=== PATIENT | male | born 1970 | race African-American/Black ===

== ENCOUNTER 2022-03-28 20:13 | Outpatient (CLI) | payer MEDICAID | END 2022-03-28 20:14 | disposition critical access hospital (66) | LOC: EMS 20:13 | DX: R40.20 Unspecified coma (principal); R06.89 Other abnormalities of breathing; E11.65 Type 2 diabetes mellitus with hyperglycemia | CPT/HCPCS: A0425; A0427; A0999 ==

== ENCOUNTER 2022-03-28 20:25 | Emergency (ER) | payer MEDICAID ==
[2022-03-28] MEDS ORDERED: NOREPINEPHRINE/D5W 8 MG/250 ML BAG IV ONE (20:56)
[2022-03-28] MEDS ORDERED: SODIUM CHLORIDE 0.9% 1,000 ML IV STA ×5 (21:04→23:23)
[2022-03-28] MEDS ORDERED: INSULIN REGULAR HUMAN 100 UNIT/1 ML 10 ML MDV ONE (21:05)
[2022-03-28] MEDS ORDERED: NOREPINEPHRINE/D5W 8 MG/250 ML BAG IV STA (21:05)
[2022-03-28] MEDS ORDERED: INSULIN REGULAR HUMAN 100 UNIT in SODIUM CHLORIDE 0.9% 100ML 99 ML IV STA (21:06)
[2022-03-28 21:09] LABS: VBG PCO2 38.8 mmHg (41-51); VBG PH 6.799 (7.31-7.41)
[2022-03-28 21:10] LABS: VBG BASE EXCESS -28.5 mmol/L (-2 - +2); VBG HCO3 5.9 mmol/L (23-28); VBG PO2 127.2 mmHg (25-47); VBG TOTAL CO2 7.1 mmol/L (24-29)
[2022-03-28 21:13] LABS: BASOPHILS % (AUTO) 0.4 %; EOSINOPHILS % (AUTO) 0.1 %; HCT - HEMATOCRIT 40.8 % (42.0-52.0); KETONES, SERUM (ACETEST) MODERATE (NEGATIVE); LYMPHOCYTES % (AUTO) 17.4 %; MEAN CORPUSCULAR HEMOGLOBIN 26.7 pg (27.0-31.0); MEAN CORPUSCULAR HGB CONC 29.4 g/dL (32.0-36.0); MEAN CORPUSCULAR VOLUME 90.9 fL (80.0-94.0); MEAN PLATELET VOLUME 13.2 fL (7.4-11.4); MONOCYTES % (AUTO) 4.5 %; NEUTROPHILS % (AUTO) 72.6 %; PLT - PLATELET COUNT 302 10^3/uL (130-450); RED BLOOD COUNT 4.49 10^6/uL (4.70-6.10); RED CELL DISTRIBUTION WIDTH 16.1 % (12.0-15.0); WHITE BLOOD COUNT 10.2 x10^3/uL (4.8-10.8)
[2022-03-28 21:16] LABS: ABNORMAL LYMPHS % (MANUAL) 0 %
--- NOTE | 2022-03-28 21:24 | ED Physician Documentation ---
History of Present Illness - Stated complaint Stated Complaint: CARDIAC ARREST, CPR - Chief complaint Chief Complaint: Critical Care - History obtained from History obtained from: EMS - Additonal information Additional information: Patient is a 52-year-old male brought in by EMS. They were called to his house where he lives with his brother and his brother's . They had not seen him for about 2 days, when they checked on him he was unresponsive in bed. 911 was called. EMS states that when they arrived they found the patient with agonal respirations and unconscious. His blood sugar read "high". He does have a history of insulin-dependent diabetes. He is seen went into cardiac arrest and CPR was begun. He received several rounds of epinephrine and did have spontaneous circulation for approximately 30 seconds at a time 2-3 times during their CPR efforts. He was coded for about 30 minutes. They found him in his room with a fan blowing cold air on him as well. He arrives to the emergency department in cardiac arrest with CPR ongoing. Review of Systems Unable to obtain: Intubated PD PAST MEDICAL HISTORY - Past Medical History Past Medical History: Yes Endocrine/Autoimmune: Other (Insulin-dependent diabetes) - Allergies Allergies/Adverse Reactions: Allergies Allergy/AdvReac Type Severity Reaction Status Date / Time Unable to Assess Allergy Verified 03/28/22 20:35 - Living Situation Living Arrangement: reports: At home - Social History Smoking Status: Unknown if ever smoked ETOH Use: Other (Unknown) Substance Use and Type: Other (Unknown) - Family History Family history: reports: Other (Unknown) PD ED PE NORMAL - Vitals Vital signs reviewed: Yes - General General: Other (Intubated, unresponsive) - HEENT HEENT: Atraumatic, Other (Dry lips, intubated, Pupils are sluggish and minimally reactive) - Neck Neck: Other (supple, no signs of trauma) - Cardiac Cardiac: Other (absent heart sounds) - Respiratory Respiratory: Other (rhonchi B) - Abdomen Abdomen: Soft, Non distended - Derm Derm: Other (cold extremities) - Extremities Extremities: No deformity - Neuro Neuro: Other (unresponsive) Results - Vitals Vitals: Vital Signs - 24 hr 03/28/22 03/28/22 03/28/22 20:24 20:29 20:47 Temperature 27.7 C L Heart Rate 110 H 97 102 H Respiratory 26 H 22 Rate Blood Pressure 98/73 95/62 74/57 L O2 Saturation 92 03/28/22 03/28/22 03/28/22 21:11 21:15 21:31 Temperature 28.0 C L 28.0 C L Heart Rate 94 100 Respiratory 21 Rate Blood Pressure 93/73 O2 Saturation 03/28/22 03/28/22 03/28/22 22:00 22:09 22:14 Temperature 28.1 C L 28.1 C L Heart Rate 51 L 51 L Respiratory 23 22 Rate Blood Pressure 80/57 L 85/66 L O2 Saturation 100 100 100 03/28/22 03/28/22 03/28/22 22:18 22:23 22:30 Temperature 28.2 C L 28.2 C L 28.3 C L Heart Rate 54 L 70 53 L Respiratory 22 22 22 Rate Blood Pressure 90/60 75/51 L 89/57 L O2 Saturation 100 100 100 03/28/22 03/28/22 22:37 22:39 Temperature 28.4 C L 28.5 C L Heart Rate 53 L 54 L Respiratory 23 22 Rate Blood Pressure 79/54 L 92/66 O2 Saturation 100 100 Oxygen O2 Source Mechanical ventilator - Labs Labs: Laboratory Tests 03/28/22 03/28/22 03/28/22 21:03 21:03 21:03 WBC 10.2 RBC 4.49 L Hgb 12.0 L Hct 40.8 L MCV 90.9 MCH 26.7 L MCHC 29.4 L RDW 16.1 H Plt Count 302 MPV 13.2 H Neut # (Auto) Not Reportable Lymph # (Auto) Not Reportable Tucker # (Auto) Not Reportable Eos # (Auto) Not Reportable Baso # (Auto) Not Reportable Absolute Nucleated RBC Not Reportable Total Counted 100 Band Neuts % (Manual) 3 Abnorm Lymph % (Manual) 0 Metamyelocytes % 3 H Nucleated RBC % Not Reportable Neutrophils # (Manual) 7.7 H Lymphocytes # (Manual) 1.7 Monocytes # (Manual) 0.5 Eosinophils # (Manual) 0.0 Basophils # (Manual) 0.0 Differential Comment MANUAL DIFFERENTIAL WBC Morphology NORMAL APPEARANCE Platelet Estimate NORMAL (130-450,000) Platelet Morphology NORMAL APPEARANCE RBC Morph Micro Appear NORMAL APPEARANCE VBG pH 6.799 L VBG pCO2 38.8 L VBG pO2 127.2 H VBG HCO3 5.9 L VBG Total CO2 7.1 L VBG O2 Saturation 96.0 H VBG Base Excess -28.5 L Sodium 129 L Potassium 4.9 Chloride 79 L* Carbon Dioxide 8 L* Anion Gap 42.0 H BUN 126 H* Creatinine 6.1 H Estimated GFR (MDRD) 12 L Glucose 1196 H* Calcium 8.7 Phosphorus > 12.0 H Magnesium 4.5 H Total Bilirubin 1.5 H AST 46 H ALT 21 Alkaline Phosphatase 123 H Total Protein 6.6 L Albumin 2.7 L Globulin 3.9 Albumin/Globulin Ratio 0.7 L Lipase 876 H Urine Color Urine Clarity Urine pH Ur Specific [place] Urine Protein Urine Glucose (UA) Urine Ketones Urine Occult Blood Urine Nitrite Urine Bilirubin Urine Urobilinogen Ur Leukocyte Esterase Urine RBC Urine WBC Ur Squamous Epith Cells Urine Bacteria Ur Microscopic Review Urine Culture Comments Nasal Adenovirus (PCR) Nasal B. parapertussis DNA (PCR) Nasal Coronavir 229E PCR Nasal Coronavir HKU1 PCR Nasal Coronavir NL63 PCR Nasal Coronavir OC43 PCR Nasal Enterovir/Rhinovir PCR Nasal Influenza B PCR Nasal Influenza A PCR Nasal Parainfluen 1 PCR Nasal Parainfluen 2 PCR Nasal Parainfluen 3 PCR Nasal Parainfluen 4 PCR Nasal RSV (PCR) Nasal B.pertussis DNA PCR Nasal C.pneumoniae (PCR) Hector Human Metapneumo PCR Nasal M.pneumoniae (PCR) Nasal SARS-CoV-2 (PCR) Salicylates < 6.0 Urine Opiates Screen Ur Oxycodone Screen Urine Methadone Screen Ur Propoxyphene Screen Acetaminophen < 10 L Ur Barbiturates Screen Ur Tricyclics Screen Ur Phencyclidine Scrn Ur Amphetamine Screen U Methamphetamines Scrn U Benzodiazepines Scrn Urine Cocaine Screen U Cannabinoids Screen Ethyl Alcohol < 5.0 Serum Ketones MODERATE H 03/28/22 03/28/22 21:18 21:24 WBC RBC Hgb Hct MCV MCH MCHC RDW Plt Count MPV Neut # (Auto) Lymph # (Auto) Tucker # (Auto) Eos # (Auto) Baso # (Auto) Absolute Nucleated RBC Total Counted Band Neuts % (Manual) Abnorm Lymph % (Manual) Metamyelocytes % Nucleated RBC % Neutrophils # (Manual) Lymphocytes # (Manual) Monocytes # (Manual) Eosinophils # (Manual) Basophils # (Manual) Differential Comment WBC Morphology Platelet Estimate Platelet Morphology RBC Morph Micro Appear VBG pH VBG pCO2 VBG pO2 VBG HCO3 VBG Total CO2 VBG O2 Saturation VBG Base Excess Sodium Potassium Chloride Carbon Dioxide Anion Gap BUN Creatinine Estimated GFR (MDRD) Glucose Calcium Phosphorus Magnesium Total Bilirubin AST ALT Alkaline Phosphatase Total Protein Albumin Globulin Albumin/Globulin Ratio Lipase Urine Color YELLOW Urine Clarity CLEAR Urine pH 5.5 Ur Specific [place] 1.020 Urine Protein NEGATIVE Urine Glucose (UA) >=1000 H Urine Ketones 15 H Urine Occult Blood SMALL H Urine Nitrite NEGATIVE Urine Bilirubin NEGATIVE Urine Urobilinogen 0.2 (NORMAL) Ur Leukocyte Esterase NEGATIVE Urine RBC 11-25 H Urine WBC 0-3 Ur Squamous Epith Cells NONE SEEN Urine Bacteria Rare Ur Microscopic Review INDICATED Urine Culture Comments NOT INDICATED Nasal Adenovirus (PCR) NOT DETECTED Nasal B. parapertussis DNA (PCR) NOT DETECTED Nasal Coronavir 229E PCR NOT DETECTED Nasal Coronavir HKU1 PCR NOT DETECTED Nasal Coronavir NL63 PCR NOT DETECTED Nasal Coronavir OC43 PCR NOT DETECTED Nasal Enterovir/Rhinovir PCR NOT DETECTED Nasal Influenza B PCR NOT DETECTED Nasal Influenza A PCR NOT DETECTED Nasal Parainfluen 1 PCR NOT DETECTED Nasal Parainfluen 2 PCR NOT DETECTED Nasal Parainfluen 3 PCR NOT DETECTED Nasal Parainfluen 4 PCR NOT DETECTED Nasal RSV (PCR) NOT DETECTED Nasal B.pertussis DNA PCR NOT DETECTED Nasal C.pneumoniae (PCR) NOT DETECTED Hector Human Metapneumo PCR NOT DETECTED Nasal M.pneumoniae (PCR) NOT DETECTED Nasal SARS-CoV-2 (PCR) DETECTED A Salicylates Urine Opiates Screen NEGATIVE Ur Oxycodone Screen NEGATIVE Urine Methadone Screen NEGATIVE Ur Propoxyphene Screen NEGATIVE Acetaminophen Ur Barbiturates Screen NEGATIVE Ur Tricyclics Screen NEGATIVE Ur Phencyclidine Scrn NEGATIVE Ur Amphetamine Screen NEGATIVE U Methamphetamines Scrn NEGATIVE U Benzodiazepines Scrn NEGATIVE Urine Cocaine Screen NEGATIVE U Cannabinoids Screen NEGATIVE Ethyl Alcohol Serum Ketones - Rads (name of study) cxr Radiology: EMP read indepedently (ET tube at tami) Procedures - Central Line Central Line Preparation: Unable to obtain consent, Ultrasound used Central line location: Right Femoral Central line type: Triple lumen Central line aftercare: Chlorhexidine disc placed, Secured, Placement confirmed, No complications PD MEDICAL DECISION MAKING - ED course Complexity details: reviewed results, re-evaluated patient, considered differential, d/w family, d/w corporate learning consultant ED course: Patient is a 52-year-old male who was brought in by EMS in cardiac arrest. CPR was continued until they arrived in the emergency department, the ultrasound was placed over the patient's chest and the patient has contraction of the heart. He had a femoral pulse as well. CPR was stopped. Bicarb given through his intraosseous line. Peripheral IVs were unable to be established. Patient is very cold and very dehydrated. Blood sugar read high. A right femoral line was emergently placed, this will need to be changed once the patient is stable. The patient was given warm IV fluids, started on a Levophed drip. A Shine catheter was placed with temperature reading, his internal temperature is around 27 C. A warming device was placed on the patient as well. Insulin drip was started. He appears to be in DKA. A sodium bicarbonate drip was started as well. Discussed the case with our hospitalist here who feels that the patient is too sick to stay in this hospital. We have contacted [facility] in [facility] and [facility] in [facility], [facility], [facility], [facility], [facility] and no ICU beds are currently available. [facility] contacted and they will help us look for an ICU bed for this patient. The patient's brother Kyle Morataya called and I spoke with him and his . His phone number is [phone]. They state that the patient is a insulin- dependent diabetic. He also has a history of H. pylori. He is currently on insulin, omeprazole, tetracycline and metronidazole. - Critical Care Time(min): 70 Time Includes: Direct patient care, Document care, Coordinate care, Family consult for tx dec, See progress note Data interpretation: See progress note Procedures included in critical care time: See progress note Procedures excluded from critical care time: Central IV, See progress note Departure - Departure Disposition: 02 Transfer Acute Care Hosp Clinical Impression: Cardiac arrest, Hyperglycemia, Metabolic acidosis, COVID, Hyperphosphatemia, Dehydration, Hypochloremia Hypothermia Qualifiers: Encounter type: initial encounter Qualified Code(s): T68.XXXA - Hypothermia, initial encounter DKA (diabetic ketoacidosis) Qualifiers: Diabetes mellitus type: type 2 Diabetes mellitus complication detail: with coma Qualified Code(s): E11.11 - Type 2 diabetes mellitus with ketoacidosis with coma Acute renal failure Qualifiers: Acute renal failure type: unspecified Qualified Code(s): N17.9 - Acute kidney failure, unspecified Pancreatitis Qualifiers: Chronicity: acute Pancreatitis type: unspecified pancreatitis type Acute pancreatitis complication: unspecified Qualified Code(s): K85.90 - Acute pancreatitis without necrosis or infection, unspecified Condition: Critical
[2022-03-28 21:32] LABS: MUDS CUTOFF CONCENTRATIONS CUTOFF CONC BELOW:
[2022-03-28 21:39] LABS: BILIRUBIN,URINE NEGATIVE (NEGATIVE); GLUCOSE, URINE (UA) >=1000 mg/dL (NEGATIVE); KETONES,URINE (UA) 15 mg/dL (NEGATIVE); LEUKOCYTE ESTERASE, URINE NEGATIVE (NEGATIVE); NITRITE,URINE NEGATIVE (NEGATIVE); OCCULT BLOOD,URINE SMALL (NEGATIVE); PH,URINE 5.5 PH (5.0-7.5); PROTEIN,URINE NEGATIVE (NEGATIVE); UROBILINOGEN,URINE 0.2 (NORMAL) E.U./dL (NORMAL)
[2022-03-28 21:40] LABS: ALBUMIN 2.7 g/dL (3.2-5.5); ALKALINE PHOSPHATASE 123 IU/L (42-121); ALT ALANINE AMINOTRANSFERASE 21 IU/L (10-60); AST ASPARTATE AMINOTRANSFERASE 46 IU/L (10-42); CALCIUM 8.7 mg/dL (8.5-10.3); LIPASE 876 U/L (22-51); POTASSIUM 4.9 mmol/L (3.5-5.0)
[2022-03-28 21:41] LABS: ACETAMINOPHEN < 10 ug/mL (10-30); ALBUMIN/GLOBULIN RATIO 0.7 (1.0-2.2); BILIRUBIN,TOTAL 1.5 mg/dL (0.2-1.0); CREATININE 6.1 mg/dL (0.6-1.2); ETOH - ETHANOL < 5.0 mg/dL; GFR - MDRD 12 (>89); MAGNESIUM 4.5 mg/dL (1.7-2.8); SALICYLATE < 6.0 mg/dL; TOTAL PROTEIN 6.6 g/dL (6.7-8.2)
[2022-03-28 21:41] LABS: CLARITY,URINE CLEAR (CLEAR)
[2022-03-28 21:44] LABS: SODIUM 129 mmol/L (135-145)
[2022-03-28 21:46] LABS: BAND NEUTROPHILS % (MANUAL) 3 %; LYMPHOCYTES # (MANUAL) 1.7 10^3/uL (1.5-3.5); LYMPHOCYTES % (MANUAL) 17 %; METAMYELOCYTES % (MANUAL) 3 %; MONOCYTES # (MANUAL) 0.5 10^3/uL (0.0-1.0); NEUTROPHILS # (MANUAL) 7.7 10^3/uL (1.5-6.6)
[2022-03-28 21:47] LABS: BUN - BLOOD UREA NITROGEN 126 mg/dL (6-20); CARBON DIOXIDE - CO2 8 mmol/L (21-32); CHLORIDE 79 mmol/L (101-111); GLUCOSE 1196 mg/dL (70-100); PHOSPHORUS > 12.0 mg/dL (2.5-4.6)
[2022-03-28 21:48] LABS: DIFFERENTIAL COMMENT MANUAL DIFFERENTIAL; PLATELET ESTIMATE, MANUAL NORMAL (130-450,000) (NORMAL); PLATELET MORPHOLOGY NORMAL APPEARANCE (NORMAL); RBC MORPHOLOGY (MULTIPLE) NORMAL APPEARANCE (NORMAL); WBC MORPHOLOGY (MULTIPLE) NORMAL APPEARANCE (NORMAL)
[2022-03-28 21:50] LABS: AMPHETAMINE SCREEN,URINE NEGATIVE (NEGATIVE); BARBITURATE SCREEN,UR NEGATIVE (NEGATIVE); BENZODIAZEPINES SCREEN, URINE NEGATIVE (NEGATIVE); COCAINE SCREEN URINE NEGATIVE (NEGATIVE); METHADONE SCREEN, URINE NEGATIVE (NEGATIVE); METHAMPHETAMINES SCREEN, URINE NEGATIVE (NEGATIVE); OPIATE SCREEN, URINE NEGATIVE (NEGATIVE); OXYCODONE SCREEN, URINE NEGATIVE (NEGATIVE); PROPOXYPHENE SCREEN, URINE NEGATIVE (NEGATIVE); THC CANNABINOID SCREEN, URINE NEGATIVE (NEGATIVE); TRICYCLIC ANTIDEPRESSANT,URINE NEGATIVE (NEGATIVE)
[2022-03-28] MEDS ORDERED: SODIUM BICARBONATE ABBOJECT 50 MEQ/50 ML SYRINGE IVP STA (21:50)
[2022-03-28 21:57] LABS: BACTERIA,URINE Rare /HPF (None Seen); SQUAMOUS EPITHELIAL CELL,UR NONE SEEN (<= Few); WBC,URINE 0-3 /HPF (0-3)
[2022-03-28] MEDS ORDERED: EPINEPHrine ABBOJECT 1 MG/10 ML SYRINGE IVP ONE (22:30)
[2022-03-28] MEDS ORDERED: SODIUM BICARBONATE 8.4% 50 MEQ/50 ML VIAL IV ONE (22:30)
[2022-03-28] MEDS ORDERED: SODIUM BICARBONATE 150 MEQ in DEXTROSE 5% 1,000 ML IV STA (22:35)
[2022-03-28 22:40] LABS: CORONAVIRUS 229E-RESP PCR NOT DETECTED; CORONAVIRUS HKU1-RESP PCR NOT DETECTED; CORONAVIRUS NL63-RESP PCR NOT DETECTED; CORONAVIRUS OC43-RESP PCR NOT DETECTED
[2022-03-28 22:41] LABS: B. PARAPERTUSSIS- RESP PCR PAN NOT DETECTED; B. PERTUSSIS- RESP PCR PANEL NOT DETECTED; C. PNEUMONIAE- RESP PCR PANEL NOT DETECTED; HUMAN METAPNEUMOVIRUS NOT DETECTED; INFLUENZA A- RESP PCR PANEL NOT DETECTED; INFLUENZA B - RESP PCR PANEL NOT DETECTED; M. PNEUMONIAE- RESP PCR PANEL NOT DETECTED; PARAINFLUENZA VIRUS 1 NOT DETECTED; PARAINFLUENZA VIRUS 2 NOT DETECTED; PARAINFLUENZA VIRUS 3 NOT DETECTED; PARAINFLUENZA VIRUS 4 NOT DETECTED; RHINOVIRUS/ENTEROVIRUS NOT DETECTED; RSV- RESP PCR PANEL NOT DETECTED; SARS-CoV-2 -RESP PCR PANEL DETECTED
--- NOTE | 2022-03-28 22:52 | XRAY Report ---
PROCEDURE: Chest 1 View X-Ray INDICATIONS: intubation TECHNIQUE: One view of the chest was acquired. COMPARISON: None. FINDINGS: Surgical changes and devices: There is an endotracheal tube with the tip approximately 1.2 cm from t he tami. A nasogastric tube extends into the stomach, with the tip in the region of the gastric bod y. Lungs and pleura: The lungs are clear. No pleural effusions or pneumothorax. Mediastinum: Mediastinal contours appear normal. Heart size is normal. Bones and chest wall: No displaced fracture identified. No suspicious bony lesions. Overlying soft tissues appear unremarkable. IMPRESSION: 1. Endotracheal tube extends to approximately 1.2 cm from the tami. Recommend withdrawal by approxi mately 3 cm. Reviewed by: Ryan Crawford MD on 03/28/2022 10:51 PM PDT Approved by: Ryan Crawford MD on 03/28/2022 10:51 PM PDT Station ID: [id number]
[2022-03-28] MEDS ORDERED: SODIUM BICARBONATE 8.4% 50 MEQ/50 ML VIAL ONE (23:01)
[2022-03-28 23:09] LABS: ABG BASE EXCESS -27.7 mmol/L (-2.0-3.0); ABG MODE OF VENTILATION ASSIST/CONTROL; ABG OXYGEN SATURATION 100 % (94-98); ABG RESPIRATORY RATE 22 b/min; ALLEN TEST POSITIVE
[2022-03-28 23:11] LABS: ABG PCO2 21 mmHg (34-45); ABG PO2 492 mmHg (80-100); ABG TCO2 4.6 MMOL/L (21.0-29.0)
[2022-03-28] MEDS ORDERED: VASOPRESSIN 20 UNIT in DEXTROSE 5% 99 ML IV STA (23:21)
--- NOTE | 2022-03-28 23:42 | ED Physician Documentation ---
ED Addendum - Addendum Addendum: Patient received in signout from Dr. Lazo. Patient is status postcardiac arrest and found to be in DKA, hypothermic and COVID-positive. CT brain, EKG is pending. Patient is awaiting transfer to facility with higher level of care. 03/28/22 23:20 D/W Dr. Castillo at [place]. She recommends increasing his respiratory rate to 22 on the ventilator and given an additional liter of fluids. She also recommends adding vasopressin at 0.4 units. She also requests a lactic, troponin and set of blood cultures.I have updated the patient's nurse as well as respiratory therapist with these updated orders. 03/29/22 00:05 EKG Time 2353; Rate 62; NSR; No STEMI; QTC 518; Troponin Is sligh tly elevated at 37, lactic is 6.5 Patient has been accepted to [facility] under the care of Dr. Castillo. He will be transported by air.I attempted to call the phone number for his next of kin but there was no answer and no ability to leave a voice message. Departure - Departure Disposition: 02 Transfer Acute Care Hosp Clinical Impression: Cardiac arrest, Hyperglycemia, Metabolic acidosis, COVID, Hyperphosphatemia, Dehydration, Hypochloremia Hypothermia Qualifiers: Encounter type: initial encounter Qualified Code(s): T68.XXXA - Hypothermia, initial encounter DKA (diabetic ketoacidosis) Qualifiers: Diabetes mellitus type: type 2 Diabetes mellitus complication detail: with coma Qualified Code(s): E11.11 - Type 2 diabetes mellitus with ketoacidosis with coma Acute renal failure Qualifiers: Acute renal failure type: unspecified Qualified Code(s): N17.9 - Acute kidney failure, unspecified Pancreatitis Qualifiers: Chronicity: acute Pancreatitis type: unspecified pancreatitis type Acute pancreatitis complication: unspecified Qualified Code(s): K85.90 - Acute pancreatitis without necrosis or infection, unspecified Condition: Critical Discharge Date/Time: 03/29/22 01:47
--- NOTE | 2022-03-28 23:53 | CT Report ---
PROCEDURE: HEAD WO INDICATIONS: altered, mental status TECHNIQUE: Noncontrast 4.5 mm thick angled axial sections acquired from the foramen magnum to the vertex. For r adiation dose reduction, the following was used: automated exposure control, adjustment of mA and/or kV according to patient size. COMPARISON: None. FINDINGS: Image quality: Diagnostic. CSF spaces: Basal cisterns are patent. No extra-axial fluid collections. Ventricles are normal in size and shape. Brain: No intracranial hemorrhage, mass, or mass effect. Lorenzo-white matter interface appears preser christiano. Skull and face: Calvarium and visualized facial bones are intact, without suspicious lesions. There are partially visualized endotracheal and orogastric tubes. Sinuses: Visualized sinuses and mastoid s are clear. IMPRESSION: 1. No acute intracranial abnormality. Reviewed by: Ryan Crawford MD on 03/29/2022 12:00 AM PDT Approved by: Ryan Crawford MD on 03/29/2022 12:00 AM PDT Station ID: [id number]
[2022-03-29] MEDS ORDERED: VASOPRESSIN 20 UNIT/ML VIAL ONE (00:26)
[2022-03-29 00:53] VITALS: BP 124/97
== END 2022-03-29 01:47 | disposition short-term general hospital (02) ==
LOC: ED 20:25
DX: I46.9 Cardiac arrest, cause unspecified (principal); E11.65 Type 2 diabetes mellitus with hyperglycemia; Z79.4 Long term (current) use of insulin; U07.1 COVID-19; E83.39 Other disorders of phosphorus metabolism; E86.0 Dehydration; E87.8 Other disorders of electrolyte and fluid balance, not elsewhere classified; T68.XXXA Hypothermia, initial encounter; W93.8XXA Exposure to other excessive cold of man-made origin, initial encounter; E11.10 Type 2 diabetes mellitus with ketoacidosis without coma; N17.9 Acute kidney failure, unspecified; K85.90 Acute pancreatitis without necrosis or infection, unspecified
CPT/HCPCS: 36415; 36556; 36600; 43753; 51702; 70450; 71045; 80053; 80306; 80307; 80320; 80329; 81001; 82009; 82803; 83605; 83690; 83735; 84100; 84484; 85025; 87040; 87633; 93005; 96361; 96365; 96375; 96376; 99291; J1815; 81003; 87086